=== PATIENT | male | born 2000 | race African-American/Black ===

== ENCOUNTER 2023-05-21 14:04 | Emergency (ER) | payer BC, MEDICAID ==
[~2023-05-21] VITALS: Ht 177.8 cm; Wt 109.0 kg
[2023-05-21 14:22] VITALS: TEMP 98.1; O2SAT 99
[2023-05-21 16:20] VITALS: BP 118/65; PULSE 80; RESP 17
== END 2023-05-21 16:20 | disposition home or self-care (01) ==
LOC: ER 14:04
DX: U07.1 COVID-19 (principal); Z68.34 Body mass index [BMI] 34.0-34.9, adult
CPT/HCPCS: 99281